=== PATIENT | female | born 1995 | race Caucasian/White ===

== ENCOUNTER → 2017-07-13 | Day surgery (SDC) | payer BC ==
[~2017-07-13] VITALS: Ht 157.5 cm; Wt 80.0 kg
[~2017-07-13] MED LIST: COSYNTROPIN INJ 250 MCG in SYRINGE 4 ML IV SCH; PATIENT'S ALLERGY INFO NEEDS ENTERED SCH
[2017-07-13 07:35] VITALS: BP 115/77; PULSE 75; TEMP 36.9; O2SAT 92; Ht 157.5 cm; Wt 80.0 kg
[2017-07-13 09:05] LABS: BLOOD UREA NITROGEN 12 mg/dl (7-18); BUN/CREATININE RATIO 22.8 (10-20); CALCIUM 8.6 mg/dl (8.5-10.1); CARBON DIOXIDE 24 mmol/L (21-32); CHLORIDE 107 mmol/L (98-107); CREATININE 0.54 mg/dl (0.60-1.20); GLUCOSE 87 mg/dl (70-99); POTASSIUM 3.8 mmol/L (3.5-5.1); SODIUM 138 mmol/L (136-145)
[2017-07-13 09:25] VITALS: BP 110/75; PULSE 75; TEMP 36.8; O2SAT 99
== END | disposition home or self-care (01) ==
LOC: C.MTU 07:25
PROVIDERS: ATTEND Internal Medicine Endocrinology, Diabetes & Metabolism
DX: E28.2 Polycystic ovarian syndrome (principal)